=== PATIENT | female | born 1985 | race Two or more races ===

== ENCOUNTER 2018-05-23 11:58 | Emergency (ER) | payer MEDICAID ==
[~2018-05-23] VITALS: Ht 162.6 cm; Wt 79.4 kg
[2018-05-23 12:01] VITALS: BP 134/67
--- NOTE | 2018-05-23 12:07 | NUR ---
urine cup handed to pt for sample---back to [facility] for available room for md bonilla
--- NOTE | 2018-05-23 12:16 | NUR ---
PATIENT AMBULATED TO BED 7 AT THIS TIME.
--- NOTE | 2018-05-23 12:20 | NUR ---
32 y female c/o sharp stabbing LUQ pain radiating L Flank x 1 month. pain 10/10 aching, sharp. states she was seen in outside hospital and was dx uti, rx keflex, finished medication and states she still has no relief. denies n/v/d---last bm last night no straining. bowel sounds active in all four quadrants. abdomen soft and round. aa0x4. vss at this time. bed is down, locked, bed rail x 1, ermd notified. hx--denies rx---none
--- NOTE | 2018-05-23 12:22 | NUR ---
pt unable to give urine at this time
[2018-05-23 12:51] LABS: BASOPHILS % (AUTO) 0.3 % (0.0-2.0); EOSINOPHILS # (AUTO) 0.1 K/uL (0-0.4); EOSINOPHILS % (AUTO) 0.9 % (0.0-4.0); HEMATOCRIT 42.7 % (36-48); HEMOGLOBIN 14.4 g/dL (12.0-16.0); LYMPHOCYTES # (AUTO) 2.7 K/uL (2.5-16.5); LYMPHOCYTES % (AUTO) 25.4 % (20.5-51.1); MEAN CORPUSCULAR HEMOGLOBIN 31 pg (27-31); MEAN CORPUSCULAR HGB CONC 34 g/dL (33-37); MEAN CORPUSCULAR VOLUME 91.6 fL (80-94); MONOCYTES # (AUTO) 0.6 K/uL (0.8-1.0); MONOCYTES % (AUTO) 5.6 % (1.7-9.3); NEUTROPHILS # (AUTO) 7.1 K/uL (1.8-7.7); NEUTROPHILS % (AUTO) 67.8 % (42.2-75.2); PLATELET COUNT (AUTO) 295 K/uL (140-450); RED BLOOD CELL COUNT(AUTO) 4.65 MIL/uL (4.20-5.40); RED CELL DISTRIBUTION WIDTH 14.3 % (11.6-13.7); WHITE BLOOD COUNT (AUTO) 10.5 K/uL (4.8-10.8)
[2018-05-23 13:05] LABS: ALBUMIN 3.7 g/dL (3.4-5.0); ANION GAP 14.1 (8-16); CARBON DIOXIDE 25.4 mmol/L (21-32); CREATININE 0.8 mg/dL (0.6-1.3); POTASSIUM 3.5 mmol/L (3.5-5.1); TOTAL BILIRUBIN 0.4 mg/dL (0.0-1.0)
[2018-05-23 13:15] LABS: APPEARANCE,URINE SL CLOUDY (CLEAR); BILIRUBIN,URINE NEGATIVE (NEGATIVE); BLOOD, URINE NEGATIVE (NEGATIVE); COLOR,URINE YELLOW (YELLOW); LEUKOCYTE ESTERASE ,URINE 1+ (NEGATIVE); NITRITE, URINE NEGATIVE (NEGATIVE); PH,URINE 7.5 (5.0-9.0); UGLUCOSE NEGATIVE (NEGATIVE)
[2018-05-23 13:20] LABS: BILIRUBIN,DIRECT 0.1 mg/dL (0.0-0.3)
--- NOTE | 2018-05-23 13:24 | NUR ---
pt sleeping in bed
[2018-05-23 13:45] LABS: RBC,URINE 0-5 /HPF (0-5)
[2018-05-23] MEDS ORDERED: NACL 0.9% 1,000 ML IV ONE (13:56)
[2018-05-23] MEDS ORDERED: NACL 0.9% 1,000 ML IV SCH (13:56)
[2018-05-23] MEDS ORDERED: KETOROLAC 30 MG/ML VIAL IVP ONE (14:00)
[2018-05-23] MEDS ORDERED: LEVOFLOXACIN 500 MG/D5W PREMIX 100 ML IV ONE (14:00)
--- NOTE | 2018-05-23 14:52 | NUR ---
US AT BEDSIDE
[2018-05-23 15:02] LABS: AMYLASE 50 U/L (25-115); LIPASE 93 U/L (73-393)
[2018-05-23 17:52] VITALS: BP 123/75
--- NOTE | 2018-05-23 17:53 | NUR ---
Patient discharged with v/s stable. Written and verbal after care instructions given and explained. Patient alert, oriented and verbalized understanding of instructions. Ambulatory with steady gait. All questions addressed prior to discharge. ID band removed. Patient advised to follow up with PMD. Rx of LEVAQUIN, MOTRIN given. Patient educated on indication of medication including possible reaction and side effects. Opportunity to ask questions provided and answered.
== END 2018-05-23 17:53 | disposition home or self-care (01) ==
LOC: MED 11:58
DX: N39.0 Urinary tract infection, site not specified (principal); N23 Unspecified renal colic
CPT/HCPCS: 36415; 74176; 76705; 80053; 80076; 81001; 81025; 82150; 83690; 85025; 87086; 96365; 96366; 96375; 99284; J1885; J1956; J7030; Q0092

== ENCOUNTER 2018-05-26 15:32 | Emergency (ER) | payer MEDICAID ==
[~2018-05-26] VITALS: Ht 160 cm; Wt 79.4 kg
[2018-05-26 15:39] VITALS: BP 127/60
--- NOTE | 2018-05-26 15:45 | NUR ---
PATIENT AMBULATED TO ER BED 12.
--- NOTE | 2018-05-26 16:00 | NUR ---
C/O LEFT ABD PAIN RADIATING TO LEFT FLANK SINCE TUESDAY. DENIES N/V/D, FEVER/CHILLS, DYSURIA/HEMATURIA.SEEN HERE FOR SIMILAR SX, DX: KIDNEY INFECTION, OVARIAN CYST,CURRENTLY ON ANTIBIOTICS. SKIN IS PINK/WARM/DRY; AAOX4 WITH EVEN AND STEADY GAIT; LUNGS CLEAR BL; HR EVEN AND REGULAR; PT DENIES ANY FEVER, CP, SOB, OR COUGH AT THIS TIME; PATIENT STATES PAIN OF 10/10 AT THIS TIME; VSS; PATIENT POSITIONED FOR COMFORT; HOB ELEVATED; BEDRAILS UP X2; BED DOWN. ER MD MADE AWARE OF PT STATUS.
[2018-05-26 16:39] LABS: APPEARANCE,URINE CLEAR (CLEAR); BILIRUBIN,URINE NEGATIVE (NEGATIVE); BLOOD, URINE NEGATIVE (NEGATIVE); COLOR,URINE YELLOW (YELLOW); LEUKOCYTE ESTERASE ,URINE 1+ (NEGATIVE); NITRITE, URINE NEGATIVE (NEGATIVE); UGLUCOSE NEGATIVE (NEGATIVE)
[2018-05-26 16:51] LABS: RBC,URINE 0-5 /HPF (0-5)
[2018-05-26 17:57] VITALS: BP 138/72
--- NOTE | 2018-05-26 17:57 | NUR ---
Patient discharged with v/s stable. Written and verbal after care instructions given and explained. Patient alert, oriented and verbalized understanding of instructions. Ambulatory with steady gait. All questions addressed prior to discharge. ID band removed. Patient advised to follow up with PMD. Rx of [employer] MAGNESIUM CITRATE AND MIRALAX POWDER FOR SOLUTION given. Patient educated on indication of medication including possible reaction and side effects. Opportunity to ask questions provided and answered.
== END 2018-05-26 17:57 | disposition home or self-care (01) ==
LOC: MED 15:32
DX: R10.12 Left upper quadrant pain (principal)
CPT/HCPCS: 81001; 81025; 87086; 99283